=== PATIENT | female | born 1960 ===

== ENCOUNTER → 2017-07-05 | Outpatient (CLI) | payer OTHER | END | disposition home or self-care (01) | LOC: SONOGRAMA 07:25 → MAMO-SONO 08:15 | DX: M75.102 Unspecified rotator cuff tear or rupture of left shoulder, not specified as traumatic (principal) ==

== ENCOUNTER 2025-01-01 07:00 | Inpatient (IN) | payer OTHER ==
[~2025-01-01] VITALS: Ht 167.6 cm; Wt 85.7 kg
[2025-01-01 08:53] LABS: URINE APPEARANCE Clear; URINE BILIRRUBIN Negative (NEGATIVE); URINE BLOOD Trace; URINE COLOR Yellow; URINE GLUCOSE Negative (NEGATIVE); URINE KETONE Negative (NEGATIVE); URINE LEUKOCYTE Negative; URINE NITRATE Negative; URINE PROTEIN Negative (NEGATIVE); URINE UROBILINOGEN 0.2 E.U./dl
[2025-01-01 08:53] LABS: BASO % 0.8 % (0.1-1.2); EOS # 0.07 (0.04-0.54); EOS % 1.5 % (0.7-7.0); LYMPH # 1.63 (1.18-3.74); LYMPH % 33.8 % (19.3-53.1); MEAN PLATELET VOLUME 10.30 fl (9.4-12.4); MONO # 0.29 (0.24-0.82); MONO % 6.0 % (4.7-12.5); NEUT # 2.78 (1.56-6.13); NEUT % 57.7 % (34.0-71.1); RED CELL DISTRIBUTION WIDTH 14.6 % (11.6-14.4)
[2025-01-01 08:54] LABS: URINE BACTERIA 63.5 uL (0.0-1933); URINE EPITHELIAL CELLS 16.7 uL (0.0-38.8); URINE RBC 16.5 uL (0.0-20.8); URINE WBC 5.0 uL (0.0-23.2)
[2025-01-01 09:00] LABS: URINE CAST 0.43 uL (0.0-1.40)
[2025-01-01 09:07] VITALS: BP 140/78
[2025-01-01] MEDS ORDERED: SYNTHROID88 MCG PO (09:08)
[2025-01-01] MEDS ORDERED: NORVASC2.5 M1 PO (09:08)
[2025-01-01 09:18] LABS: COVID-19 AG NEGATIVE (NEGATIVE)
[2025-01-01 09:25] LABS: INR 1.0
[2025-01-01 09:34] LABS: ALT/SGPT 26.0 U/L (12-78); AST/SGOT 13.0 U/L (15-37); BILIRUBIN TOTAL 1.16 mg/dL (0.3-1.2); BUN CREA RATIO 28.0 (7.0-25.0); CHOL HDL RATIO 3.0 (0-5.0); CREATININE SERUM 0.54 mg/dL (0.55-1.02); GFR 112.95; GLOBULINA 3.7 G/DL (2.4-3.5); GLUCOSE FASTING 103.0 mg/dL (65-100); HDL 56.0 mg/dl (40-60); LDL 94.0 mg/dl (0-130); OSMOLALITY SERUM 286.0 MOSM/KG (275-295); VLDL 15.0 (0-39)
[2025-01-08] MEDS ORDERED: TRANEXAMIC ACID 100MG/1ML (1000MG) AMPUL IV ONE ×2 (07:00)
[2025-01-08] MEDS ORDERED: VANCOMYCIN HCL 1,000 MG VIAL IR ONE (07:00)
[2025-01-08] MEDS ORDERED: KETOROLAC TROMETHAMINE 60 MG VIAL IM ONE (07:00)
[2025-01-08] MEDS ORDERED: CEFAZOLIN SODIUM 1,000 MG VIAL IV ONE (07:00)
[2025-01-08] MEDS ORDERED: BUPIVACAINE HCL 30 ML VIAL IJ ONE (07:00)
[2025-01-08] MEDS ORDERED: ISOPROPYL ALCOHOL 30 ML OUNCE TOP ONE (07:00)
[2025-01-08] MEDS ORDERED: POVIDONE-IODINE 118 ML BOTT TOP ONE (07:00)
[2025-01-08] MEDS ORDERED: MORPHINE SULFATE 4 MG/ML CARTRIDGE IV ONE (07:00)
[2025-01-08] MEDS ORDERED: LIDOCAINE HCL 1%/EPINEPHRINE 20ML VIAL IJ ONE (07:00)
[2025-01-08] MEDS ORDERED: ONDANSETRON HCL 2 MG/ML VIAL IV PRN (11:30)
[2025-01-08] MEDS ORDERED: MORPHINE SULFATE 4 MG/ML CARTRIDGE IV PRN (11:30)
[2025-01-08] MEDS ORDERED: SODIUM CHLORIDE 0.45 % 1,000 ML IV SCH (11:30)
[2025-01-08] MEDS ORDERED: OxyCODONE HCL 5 MG TABLET (ROXICODONE) PO PRN (11:30)
[2025-01-08] MEDS ORDERED: ACETAMINOPHEN 500 MG GEL..CAP PO SCH (12:00)
[2025-01-08 14:10] VITALS: BP 115/612; O2SAT 98
[2025-01-08 15:30] VITALS: BP 119/70; O2SAT 99
[2025-01-08] MEDS ORDERED: CEFAZOLIN SODIUM 1,000 MG VIAL IV SCH (17:00)
[2025-01-08] MEDS ORDERED: GABAPENTIN 300 MG CAPSULE PO SCH (17:00)
[2025-01-08] MEDS ORDERED: ENALAPRILAT DIHYDRATE 2.5 MG/2 ML VIAL IV PRN (19:00)
[2025-01-09 01:32] VITALS: BP 119/71; O2SAT 98
[2025-01-09] MEDS ORDERED: LEVOTHYROXINE SODIUM 88 MCG TABLET PO SCH (06:00)
[2025-01-09 06:29] LABS: BASO % 0.1 % (0.1-1.2); EOS # 0.01 (0.04-0.54); EOS % 0.1 % (0.7-7.0); LYMPH # 1.18 (1.18-3.74); LYMPH % 14.5 % (19.3-53.1); MEAN PLATELET VOLUME 10.30 fl (9.4-12.4); MONO # 0.52 (0.24-0.82); MONO % 6.4 % (4.7-12.5); NEUT # 6.39 (1.56-6.13); NEUT % 78.5 % (34.0-71.1); RED CELL DISTRIBUTION WIDTH 14.6 % (11.6-14.4)
[2025-01-09] MEDS ORDERED: PERCOCET 5-3251 EACH PO (07:58)
[2025-01-09] MEDS ORDERED: ELIQUIS2.5 MG PO (07:58)
[2025-01-09] MEDS ORDERED: LEVOFLOXACIN750 MG PO (07:58)
[2025-01-09] MEDS ORDERED: SENNOSIDES 1 TAB TABLET PO SCH (09:00)
[2025-01-09] MEDS ORDERED: AMLODIPINE BESYLATE 2.5 MG TABLET PO SCH (09:00)
[2025-01-09] MEDS ORDERED: APIXABAN 2.5 MG TABLET PO SCH (09:00)
[2025-01-09 09:13] VITALS: BP 110/59; O2SAT 98
[2025-01-09] MEDS ORDERED: SOD FERRIC GLUC COMPLX/SUCROSE 62.5 MG/5 ML AMPUL IV SCH (12:00)
[2025-01-09] MEDS ORDERED: Cyanocobalamin/Mecobalamin 1 TAB.SL SL NR (12:00)
[2025-01-09 15:30] VITALS: BP 128/72; O2SAT 95
[2025-01-10 01:57] VITALS: BP 136/74; O2SAT 99
[2025-01-10 06:38] LABS: BASO % 0.3 % (0.1-1.2); EOS # 0.16 (0.04-0.54); EOS % 2.2 % (0.7-7.0); LYMPH # 1.18 (1.18-3.74); LYMPH % 16.1 % (19.3-53.1); MEAN PLATELET VOLUME 10.80 fl (9.4-12.4); MONO # 0.33 (0.24-0.82); MONO % 4.5 % (4.7-12.5); NEUT # 5.60 (1.56-6.13); NEUT % 76.6 % (34.0-71.1); RED CELL DISTRIBUTION WIDTH 14.6 % (11.6-14.4)
[2025-01-10 08:59] VITALS: BP 114/68; O2SAT 100
[2025-01-10] MEDS ORDERED: Cyanocobalamin/Mecobalamin 1 TAB.SL SL SCH (09:00)
[2025-01-10] MEDS ORDERED: IRON FUM,PS/FOLIC ACID/VITC/B3 1 CAP CAPSULE PO SCH (09:00)
[2025-01-10 16:00] VITALS: BP 127/77; O2SAT 95
[2025-01-11 00:52] VITALS: BP 117/74; O2SAT 100
[2025-01-11 08:39] VITALS: BP 115/76; O2SAT 100
[2025-01-11 16:21] LABS: BASO % 0.4 % (0.1-1.2); EOS # 0.23 (0.04-0.54); EOS % 3.4 % (0.7-7.0); LYMPH # 1.50 (1.18-3.74); LYMPH % 22.0 % (19.3-53.1); MEAN PLATELET VOLUME 9.80 fl (9.4-12.4); MONO # 0.34 (0.24-0.82); MONO % 5.0 % (4.7-12.5); NEUT # 4.68 (1.56-6.13); NEUT % 68.6 % (34.0-71.1); RED CELL DISTRIBUTION WIDTH 15.8 % (11.6-14.4)
[2025-01-11 17:32] VITALS: BP 148/66; O2SAT 99
== END 2025-01-11 22:36 | DRG 467 ==
LOC: O/R 01-08 06:00 → SURG 01-08 06:00 → SURH 01-08 07:00 → SURG 01-08 13:30
PROVIDERS: ADMIT Orthopaedic Surgery; ATTEND Orthopaedic Surgery
PROC: 0QUF0JZ Supplement Left Patella with Synthetic Substitute, Open Approach (ICD-10-PCS; 2025-01-08)
PROC: 0QUF0KZ Supplement Left Patella with Nonautologous Tissue Substitute, Open Approach (ICD-10-PCS; 2025-01-08)
PROC: 0LQR0ZZ Repair Left Knee Tendon, Open Approach (ICD-10-PCS; 2025-01-08)
PROC: 0SWD0JZ Revision of Synthetic Substitute in Left Knee Joint, Open Approach (ICD-10-PCS; principal; 2025-01-08 11:45)
PROC: 30233N1 Transfusion of Nonautologous Red Blood Cells into Peripheral Vein, Percutaneous Approach (ICD-10-PCS; 2025-01-11)
DX: T84.031A Mechanical loosening of internal left hip prosthetic joint, initial encounter (principal); D62 Acute posthemorrhagic anemia; M17.11 Unilateral primary osteoarthritis, right knee; M25.661 Stiffness of right knee, not elsewhere classified

== ENCOUNTER 2025-02-05 07:00 | Day surgery (SDC) | payer OTHER ==
[~2025-02-05 07:00] MED LIST: ELIQUIS2.5 MG PO; LEVOFLOXACIN750 MG PO; NORVASC2.5 M1 PO; PERCOCET 5-3251 EACH PO; SYNTHROID88 MCG PO
[2025-02-05] MEDS ORDERED: CEFADROXIL500 MG PO (13:13)
[2025-02-05] MEDS ORDERED: PERCOCET 5-3251 EACH PO (13:13)
== END 2025-02-05 14:30 | disposition home or self-care (01) ==
LOC: CIR.AMB 07:00
PROVIDERS: ATTEND Orthopaedic Surgery
DX: M24.562 Contracture, left knee (principal); Z88.8 Allergy status to other drugs, medicaments and biological substances; Z96.652 Presence of left artificial knee joint

== ENCOUNTER 2025-02-19 05:46 | Inpatient (IN) | payer OTHER ==
[~2025-02-19] VITALS: Ht 170.2 cm; Wt 85.7 kg
[~2025-02-19 05:46] MED LIST changes: +CEFADROXIL500 MG PO
[2025-02-19] MEDS ORDERED: LEVOTHYROXINE25 MCG (06:27)
[2025-02-19] MEDS ORDERED: ARBLI10 MG/1 ML PO (06:27)
--- NOTE | 2025-02-19 06:27 | NUR ---
SE RECIBE PACIENTE ALERTA Y CONCIENTE X3. LA MISMA REFIERE VENIR PRO REFERIDO DEL DR. WOOD, YA QUE LA MISMA INDICA TENER COMPLICACION EN CIRUGIA DE R[place]A IZQ. SE PROCEDE A MICHELLE S/V A PACIENTE Y SE UBICA EN ZELDA CON BARANDAS ELEVADS Y NIVEL MAS BAJO DE LA MISMA.
[2025-02-19] MEDS ORDERED: 0.9 % SODIUM CHLORIDE 1,000 ML IV STA (07:42)
[2025-02-19 09:20] LABS: BASO % 0.6 % (0.1-1.2); EOS # 0.05 (0.04-0.54); EOS % 0.7 % (0.7-7.0); LYMPH # 1.54 (1.18-3.74); LYMPH % 21.8 % (19.3-53.1); MEAN PLATELET VOLUME 9.10 fl (9.4-12.4); MONO # 0.35 (0.24-0.82); MONO % 5.0 % (4.7-12.5); NEUT # 5.08 (1.56-6.13); NEUT % 71.8 % (34.0-71.1); RED CELL DISTRIBUTION WIDTH 14.5 % (11.6-14.4)
--- NOTE | 2025-02-19 09:37 | NUR ---
PACIENTE ALERTA Y ORIENTADA SE EDUCA SOBRE TRATAMIENTOS A SEGUIR, LA MISMA REFIERE ENTENDER, SE LE REALIZA LATHA DE MUESTAS CON MEDIDAS ESTERILES Y SE HACE ENTREGA DE ENVACE PARA U/A
[2025-02-19 09:44] LABS: BUN CREA RATIO 26.0 (7.0-25.0); CREATININE SERUM 0.43 mg/dL (0.55-1.02); GFR 146.91; GLUCOSE FASTING 103.0 mg/dL (65-100); OSMOLALITY SERUM 283.0 MOSM/KG (275-295)
[2025-02-19 09:47] LABS: INR 0.99
[2025-02-19 10:13] LABS: URINE APPEARANCE Clear; URINE BILIRRUBIN Negative (NEGATIVE); URINE BLOOD Negative; URINE COLOR Yellow; URINE GLUCOSE Negative (NEGATIVE); URINE KETONE 15 (NEGATIVE); URINE LEUKOCYTE Negative; URINE NITRATE Negative; URINE PROTEIN Negative (NEGATIVE); URINE UROBILINOGEN 0.2 E.U./dl
[2025-02-19 10:16] LABS: URINE EPITHELIAL CELLS 2.7 uL (0.0-38.8); URINE RBC 9.0 uL (0.0-20.8)
[2025-02-19 10:25] LABS: URINE BACTERIA 0 uL (0.0-1933); URINE CAST 0.00 uL (0.0-1.40); URINE WBC 1.0 uL (0.0-23.2)
[2025-02-19] MEDS ORDERED: AMLODIPINE BESYLATE 2.5 MG TABLET PO SCH (10:26)
[2025-02-19] MEDS ORDERED: MORPHINE SULFATE 4 MG/ML CARTRIDGE IV PRN (10:30)
[2025-02-19] MEDS ORDERED: ACETAMINOPHEN 500 MG GEL..CAP PO PRN (10:30)
[2025-02-19] MEDS ORDERED: RINGERS SOLUTION,LACTATED 1,000 ML IV SCH (10:30)
[2025-02-19] MEDS ORDERED: MEROPENEM 500 MG in 0.9 % SODIUM CHLORIDE 50 ML IV SCH ×2 (10:32→12:00)
[2025-02-19] MEDS ORDERED: VANCOMYCIN HCL 1,000 MG VIAL IV SCH (10:33)
[2025-02-19] MEDS ORDERED: ATORVASTATIN CALCIUM 20 MG TABLET PO SCH (17:00)
[2025-02-19] MEDS ORDERED: BUPIVACAINE HCL/MPF 0.5% 30ML VIAL ONE (17:19)
[2025-02-19] MEDS ORDERED: ISOPROPYL ALCOHOL 30 ML OUNCE TOP ONE (17:19)
[2025-02-19] MEDS ORDERED: TRANEXAMIC ACID 100MG/1ML (1000MG) AMPUL ONE (17:19)
[2025-02-19] MEDS ORDERED: LIDOCAINE HCL 1%/EPINEPHRINE 20ML VIAL IJ ONE (17:19)
[2025-02-19] MEDS ORDERED: METHYLPREDNISOLONE ACETATE 80 MG/ML VIAL ONE (17:20)
[2025-02-19] MEDS ORDERED: DEXAMETHASONE SODIUM PHOSP/PF 10 MG/ML VIAL ONE (17:20)
[2025-02-19] MEDS ORDERED: VANCOMYCIN HCL 1,000 MG VIAL ONE ×2 (17:51→21:18)
[2025-02-19] MEDS ORDERED: POVIDONE-IODINE 118 ML BOTT TOP ONE (19:45)
[2025-02-19] MEDS ORDERED: MORPHINE SULFATE 4 MG/ML VIAL IV PRN (20:15)
[2025-02-19] MEDS ORDERED: SODIUM CHLORIDE 0.45 % 1,000 ML IV SCH (20:15)
[2025-02-19] MEDS ORDERED: OxyCODONE HCL 5 MG TABLET (ROXICODONE) PO PRN (20:15)
[2025-02-19] MEDS ORDERED: ONDANSETRON HCL 2 MG/ML VIAL IV PRN (20:15)
[2025-02-19] MEDS ORDERED: VANCOMYCIN HCL 1,000 MG in 0.9 % SODIUM CHLORIDE 250 ML IV SCH (21:00)
[2025-02-19] MEDS ORDERED: FAMOTIDINE/PF 20 MG/2 ML VIAL IV SCH (21:00)
[2025-02-19] MEDS ORDERED: FAMOTIDINE/PF 20 MG/2 ML VIAL ONE (21:18)
[2025-02-20] MEDS ORDERED: ACETAMINOPHEN 500 MG GEL..CAP PO SCH
[2025-02-20] MEDS ORDERED: GABAPENTIN 300 MG CAPSULE PO SCH (01:00)
[2025-02-20 01:59] VITALS: BP 130/71; O2SAT 98
[2025-02-20] MEDS ORDERED: LEVOTHYROXINE SODIUM 88 MCG TABLET PO SCH (06:00)
[2025-02-20] MEDS ORDERED: VANCOMYCIN HCL 1,000 MG VIAL ONE (06:30)
[2025-02-20 06:56] LABS: BASO % 0.5 % (0.1-1.2); EOS # 0.09 (0.04-0.54); EOS % 1.2 % (0.7-7.0); LYMPH # 1.31 (1.18-3.74); LYMPH % 17.0 % (19.3-53.1); MEAN PLATELET VOLUME 9.40 fl (9.4-12.4); MONO # 0.55 (0.24-0.82); MONO % 7.1 % (4.7-12.5); NEUT # 5.68 (1.56-6.13); NEUT % 73.8 % (34.0-71.1); RED CELL DISTRIBUTION WIDTH 14.6 % (11.6-14.4)
[2025-02-20] MEDS ORDERED: DUI500 PO (07:42)
[2025-02-20] MEDS ORDERED: ELIQUIS2.5 MG PO (07:42)
[2025-02-20] MEDS ORDERED: PERCOCET 5-3251 EACH PO (07:42)
[2025-02-20 08:00] VITALS: BP 146/75; O2SAT 100
[2025-02-20] MEDS ORDERED: SENNOSIDES 1 TAB TABLET PO SCH (09:00)
[2025-02-20] MEDS ORDERED: APIXABAN 2.5 MG TABLET PO SCH (09:00)
[2025-02-20] MEDS ORDERED: ENOXAPARIN SODIUM 40 MG/0.4 ML SYRINGE SUBCUTANEO SCH (09:00)
[2025-02-20 16:00] VITALS: BP 142/65; O2SAT 100
[2025-02-20] MEDS ORDERED: DOXYCYCLINE HYCLATE 100MG EACH PO SCH (17:00)
[2025-02-20] MEDS ORDERED: CEFEPIME HCL 2,000 MG in 0.9 % SODIUM CHLORIDE 100 ML IV SCH (21:00)
[2025-02-21 00:41] VITALS: BP 127/67; O2SAT 99
[2025-02-21 06:22] LABS: BASO % 0.6 % (0.1-1.2); EOS # 0.24 (0.04-0.54); EOS % 2.9 % (0.7-7.0); LYMPH # 1.71 (1.18-3.74); LYMPH % 20.7 % (19.3-53.1); MEAN PLATELET VOLUME 9.50 fl (9.4-12.4); MONO # 0.84 (0.24-0.82); MONO % 10.2 % (4.7-12.5); NEUT # 5.38 (1.56-6.13); NEUT % 65.2 % (34.0-71.1); RED CELL DISTRIBUTION WIDTH 14.9 % (11.6-14.4)
[2025-02-21 07:11] LABS: ALT/SGPT 19.0 U/L (12-78); AST/SGOT 10.0 U/L (15-37); BILIRUBIN TOTAL 0.61 mg/dL (0.3-1.2); BUN CREA RATIO 24.0 (7.0-25.0); CREATININE SERUM 0.54 mg/dL (0.55-1.02); GFR 112.95; GLOBULINA 3.4 G/DL (2.4-3.5); GLUCOSE FASTING 119.0 mg/dL (65-100); OSMOLALITY SERUM 286.0 MOSM/KG (275-295)
[2025-02-21] MEDS ORDERED: PANTOPRAZOLE SODIUM 40 MG TABLET.DR PO SCH (09:00)
[2025-02-21] MEDS ORDERED: IRON FUM,PS/FOLIC ACID/VITC/B3 1 CAP CAPSULE PO SCH (09:00)
[2025-02-21 09:19] VITALS: BP 123/71; O2SAT 97
[2025-02-21 16:00] VITALS: BP 124/70; O2SAT 97
[2025-02-22 01:18] VITALS: BP 120/71; O2SAT 99
[2025-02-22 07:34] LABS: BASO % 0.4 % (0.1-1.2); EOS # 0.14 (0.04-0.54); EOS % 2.0 % (0.7-7.0); LYMPH # 1.24 (1.18-3.74); LYMPH % 17.9 % (19.3-53.1); MEAN PLATELET VOLUME 9.60 fl (9.4-12.4); MONO # 0.60 (0.24-0.82); MONO % 8.7 % (4.7-12.5); NEUT # 4.88 (1.56-6.13); NEUT % 70.6 % (34.0-71.1); RED CELL DISTRIBUTION WIDTH 14.5 % (11.6-14.4)
[2025-02-22 08:34] VITALS: BP 121/86; O2SAT 100
[2025-02-22] MEDS ORDERED: AMINO ACIDS 1 EACH TABLET PO SCH (09:00)
[2025-02-22] MEDS ORDERED: LACTULOSE 20 G/30 ML BLIST.PACK PO SCH (09:23)
[2025-02-22] MEDS ORDERED: MAGNESIUM HYDROXIDE 30 ML BLIST.PACK PO SCH (09:24)
[2025-02-22] MEDS ORDERED: MINERAL OIL 30 ML BLIST.PACK PO SCH (09:25)
[2025-02-22 16:00] VITALS: BP 111/67; O2SAT 98
[2025-02-23 00:30] VITALS: BP 137/79; O2SAT 99
[2025-02-23 08:00] VITALS: BP 145/77; O2SAT 100
[2025-02-24] VITALS: BP 132/64; O2SAT 97
[2025-02-24 08:00] VITALS: BP 132/73; O2SAT 99
[2025-02-24 16:00] VITALS: BP 131/73; O2SAT 98
[2025-02-25 01:02] VITALS: BP 134/72; O2SAT 95
[2025-02-25 08:00] VITALS: BP 124/75; O2SAT 99
[2025-02-25] MEDS ORDERED: PERCOCET 5-3251 EACH PO (11:43)
[2025-02-25] MEDS ORDERED: CEFADROXIL500 MG PO (11:43)
[2025-02-25] MEDS ORDERED: ELIQUIS2.5 MG PO (11:44)
[2025-02-25 16:00] VITALS: BP 142/78; O2SAT 99
== END 2025-02-25 17:03 | disposition home or self-care (01) | DRG 902 ==
LOC: ER 05:46 → SURG 10:58 → O/R 10:58 → SEC-K 10:58 → O/R 16:20 → SURG 20:11
PROVIDERS: General Practice; Orthopaedic Surgery; ADMIT Internal Medicine; ATTEND Internal Medicine
PROC: 0LQR0ZZ Repair Left Knee Tendon, Open Approach (ICD-10-PCS; 2025-02-19)
PROC: 0QUF0KZ Supplement Left Patella with Nonautologous Tissue Substitute, Open Approach (ICD-10-PCS; 2025-02-19)
PROC: 3E10X8Z Irrigation of Skin and Mucous Membranes using Irrigating Substance (ICD-10-PCS; 2025-02-19)
PROC: 0JBP0ZZ Excision of Left Lower Leg Subcutaneous Tissue and Fascia, Open Approach (ICD-10-PCS; principal; 2025-02-19 18:45)
DX: T81.89XA Other complications of procedures, not elsewhere classified, initial encounter (principal); S82.012A Displaced osteochondral fracture of left patella, initial encounter for closed fracture; T81.49XA Infection following a procedure, other surgical site, initial encounter; M25.562 Pain in left knee